=== PATIENT | female | born 1975 | race Caucasian/White ===

== ENCOUNTER 2020-12-11 19:59 | Emergency (ER) | payer SELFPAY ==
[2020-12-11 20:29] VITALS: BP 126/60; PULSE 68; RESP 18; TEMP 37.2; O2SAT 94; BMI 43.0
--- NOTE | 2020-12-11 20:54 | DI.US.S_ITS ---
PROCEDURE: US ABDOMEN LIMITED INDICATIONS: RIGHT UPPER QUADRANT PAIN TECHNIQUE: Real-time focused scanning was performed of the abdomen, with image documentation. COMPARISON: [facility], CT, ABDOMEN/PELVIS WITH CONTRAST, 10/27/2006, 16:22. FINDINGS: The liver demonstrates normal size. The liver demonstrates generalized mildly increased echogenicity. This decreases ultrasound sensitivity for detection of hepatic masses. A likely gallbladder wall polyp can be seen that measures 6-7 mm. No findings of gallstones or sludge are seen. The gallbladder wall is not thickened, measuring 3 mm or less. No specific pericholecystic fluid is seen. The sonographic Theodore sign is negative. There is no biliary dilatation, the common bile duct measures 5 mm. No significant pancreatic abnormality is seen on these images. IMPRESSION: The gallbladder demonstrates a normal sonographic appearance. No biliary dilatation is seen. Likely gallbladder wall polyp. Mild fatty liver infiltration. Note: No significant discrepancy from the preliminary report. Dictated by: Pollo Patel M.D. on 12/12/2020 at 7:58 Approved by: Pollo Patel M.D. on 12/12/2020 at 7:59
[2020-12-11 21:16] LABS: Add Manual Diff / Slide Review NO; Basophils Absolute Auto 100 /uL (0-100); Basophils Percent Auto 0.3 % (0-2); Eosinophils Absolute Auto 0 /uL (0-450); Eosinophils Percent Auto 0.1 % (2-4); Hematocrit 36.8 % (36-46); Hemoglobin 12.2 g/dL (12.0-16.0); Lymphocytes Absolute Auto 1500 /uL (1100-4500); Lymphocytes Percent Auto 7.4 % (25-40); Mean Corpuscular HGB Conc 33.1 % (30-36); Mean Corpuscular Volume 81.6 fL (80-100); Monocytes Absolute Auto 1000 /uL (0-900); Monocytes Percent Auto 5.1 % (3-14); Neutrophils Absolute Auto 17500 /uL (1500-7000); Neutrophils Percent Auto 87.1 % (50-75); Platelet Count 270 X10^3/uL (150-400); Red Blood Cell Count 4.51 X10^6/uL (4.0-5.2); Red Cell Distribution Width 14.1 % (11.6-14.8); White Blood Cell Count 20.1 X10^3/uL (4.5-11.0)
--- NOTE | 2020-12-11 21:21 | ED_ITS ---
HPI - Abdominal Pain General Chief Complaint: Abdominal Pain Stated Complaint: stomach pain,ct scan done, us needed Time Seen by Provider: 12/11/20 20:53 Source: patient Mode of arrival: Ambulatory Limitations: no limitations History of Present Illness HPI narrative: Patient is a 45-year-old female with no reported past medical history [place] at [facility] Emergency Department there she had blood work and a CT scan. She has had ongoing abdominal pain that started today. It was initially reported in her upper abdomen and radiated to bilateral upper quadrants. She now reports that it is periumbilical and goes down to her pelvic region. It comes and goes. sHe had dry heaving but no vomiting. She had leukocytosis of 16 with left shift. Troponin was negative, COVID was negative, bilirubin and LFTs and lipase were normal. CT did not show any abnormal finding. Patient has not had any reported diarrhea. She denies any chest pain or shortness of breath. Here today for ultrasound of right upper quadrant. Not COVID vaccinated. Related Data Home Medications Medication Instructions Recorded Confirmed Amoxicillin/Clav (Augmentin 875 mg PO BID #0 10/27/06 875-125 Tablet) [BUTALBITAL/APAP/CAFF] #0 10/27/06 Previous Rx's Medication Instructions Recorded ondansetron 4 mg disintegrating 4 mg PO Q8H PRN #10 tab 12/11/20 tablet Allergies Allergy/AdvReac Type Severity Reaction Status Date / Time No Known Drug Allergies Allergy Verified 12/11/20 20:29 Review of Systems Review of Systems Narrative: GENERAL: Denies chills, fatigue, malaise, fever, sweats, travel HEENT: Denies sinus pain, ear pain, sore throat, difficulty swallowing, neck pain RESPIRATORY: Denies dyspnea, cough, wheezing, hemoptysis, sputum. CARDIOVASCULAR: Denies chest pain, palpitations, orthopnea, edema GASTROINTESTINAL: See HPI : Denies dysuria, frequency, incontinence, hematuria, urinary retention, flank pain. MUSCULOSKELETAL: Denies weakness, joint pain, or bony pain SKIN: No rash, no erythema, no pruritus NEUROLOGIC: Denies weakness, dizziness, headache, numbness, change in speech, confusion PSYCHIATRIC: No concerning psychosocial issues. 12 point review of systems is negative except for those stated above and HPI Patient History Social History Smoking Status: Never smoker Smoking Status: Never smoker Substance Use Type: does not use Exam Initial Vital Signs Initial Vital Signs: Vital Signs Temperature 98.9 F 12/11/20 20:29 Pulse Rate 68 12/11/20 20:29 Respiratory Rate 18 12/11/20 20:29 Blood Pressure 126/60 12/11/20 20:29 Pulse Oximetry 94 12/11/20 20:29 GENERAL: Alert 45-year-old female appears to not feel HEENT: Head atraumatic,EOMI, pupils reactive, face symmetric, moist mucous membranes CARDIOVASCULAR: Regular rate and rhythm without murmurs, rubs or gallops. RESPIRATORY: Breath sounds equal bilaterally, no wheezes rales or rhonchi. ABDOMEN: Soft, tender periumbilical region negative Theodore sign no right upper quadrant pain EXTREMITIES: Normal range of motion, no clubbing or edema. Neurovascularly intact NEUROLOGICAL: Alert and oriented x4.Normal gait and speech. SKIN: Warm, dry, no laceration, no petechiae, no rashes or lesions. Course Orders Ordered: ED Orders 12/11/20 20:54 US abdomen limited Stat 12/11/20 21:06 Complete Blood Count AUTO DIFF Stat Comprehensive Metabolic Panel Stat Lipase Stat Discontinued Medications Sodium Chloride (Normal Saline 0.9%) 1,000 mls @ 1,000 mls/hr IV BOLUS ONE Stop: 12/11/20 22:30 Last Admin: 12/11/20 21:38 Dose: 1,000 mls/hr Documented by: CHAGO Ketorolac Tromethamine (Ketorolac 30 Mg/Ml Vial) 15 mg IV NOW ONE Stop: 12/11/20 21:32 Last Admin: 12/11/20 21:38 Dose: 15 mg Documented by: CHAGO Vital Signs Vital signs: Vital Signs - 8 hr 12/11/20 20:29 Temperature 98.9 F Pulse Rate 68 Respiratory Rate 18 Blood Pressure 126/60 Pulse Oximetry 94 MDM - Abdominal Pain Lab Data Result diagrams: 12/11/20 21:06 12/11/20 21:06 Labs: Lab Results 12/11/20 12/11/20 Range/Units 21:06 21:06 WBC 20.1 H (4.5-11.0) X10^3/uL RBC 4.51 (4.0-5.2) X10^6/uL Hgb 12.2 (12.0-16.0) g/dL Hct 36.8 (36-46) % MCV 81.6 (80-100) fL MCH 27.0 (26-34) PG MCHC 33.1 (30-36) % RDW 14.1 (11.6-14.8) % Plt Count 270 (150-400) X10^3/uL Neut % (Auto) 87.1 H (50-75) % Lymph % (Auto) 7.4 L (25-40) % [place] % (Auto) 5.1 (3-14) % Eos % (Auto) 0.1 L (2-4) % Baso % (Auto) 0.3 (0-2) % Neut # (Auto) 29453 H (1601-5339) /uL Lymph # (Auto) 1500 (0472-3332) /uL [place] # (Auto) 1000 H (0-900) /uL Eos # (Auto) 0 (0-450) /uL Baso # (Auto) 100 (0-100) /uL Sodium 133 L (137-145) mmol/L Potassium 3.9 (3.4-5.1) mmol/L Chloride 103 (98-107) mmol/L Carbon Dioxide 22 (22-32) mmol/L BUN 12 (7-17) mg/dL Creatinine 0.58 (0.52-1.04) mg/dL Estimated GFR > 60.0 (>60) mL/min BUN/Creatinine Ratio 20.7 (6-22) Glucose 135 H (70-100) mg/dL Calcium 8.9 (8.4-10.2) mg/dL Total Bilirubin 0.6 (0.2-1.3) mg/dL AST 18 (14-36) IU/L ALT 15 (<35) IU/L Alkaline Phosphatase 74 (38-126) U/L Total Protein 6.9 (6.3-8.2) g/dL Albumin 3.8 (3.5-5.0) g/dL Globulin 3.1 (1.7-4.1) g/dL Albumin/Globulin Ratio 1.2 (1.0-2.8) Lipase 34 (23-300) U/L Point of care testing: Point of Care Testing Test Results Negative Urine Dip Bedside Urine Glucose Negative Bedside Urine Bilirubin - Negative Bedside Urine Ketone +/- 5 Urine Specific Hooper 1.030 Bedside Urine Occult Blood - Negative Bedside Urine pH 5.5 Bedside Urine Protein - Negative Bedside Urine Urobilinogen - Negative Bedside Urine Nitrite - Negative Bedside Urine Leukocytes - Negative Esterase Imaging Data US - abdomen: Radiologist's Impression: Preliminary report 7 mm apparently non mobile slightly hyperechoic lesion with out posterior acoustic shadowing in the region gallbladder neck may represent polyps. MDM Narrative Medical decision making narrative: Outpatient records have been received and reviewed. She did have a CT which final impression reports no acute intra- abdominal or pelvic abnormalities. Appendix is normal. She had repeat blood work here which again showed leukocytosis this time of 20 she did receive IV Zosyn at other facility. Bilirubin LFTs and other blood work is overall reassuring. Urine does not show any sign of infection she is not having any respiratory issues. Possible gastroenteritis. I did discuss with her that she may need a repeat COVID test next week if she continues to feel bad. Patient was unhappy with this remark stating that she did not have COVID and she did not want to talk about it any longer. She was given Toradol and IV fluids for pain control. She said that it did not help and that she was ready to go home. She is given a prescription for Zofran for nausea. She was previously given a prepack at the prior emergency department for Percocet. Discharge Plan Departure Patient Disposition: Home Clinical Impression: Gastroenteritis Instructions: DI for Viral Gastroenteritis -- Adult Activity Restrictions/Additional Instructions: *You have been diagnosed with gastroenteritis *What to do: At this time her blood work does show you probably have an infection however no antibiotics are indicated at this time. I do recommend that you have a repeat COVID test if he continue to feel poorly in the next 5 days. *Continue to take medications as directed Zofran 4 mg every 8 hours if needed for nausea or vomiting *Follow up with your primary care provider in 2-3 days *Return to ER if you should have increasing pain, fever, cough, inability to keep fluids down or any new, worsening or concerning symptoms Prescriptions: New ondansetron 4 mg tablet,disintegrating 4 mg PO Q8H PRN (Reason: nausea and vomiting) Qty: 10 RF: 0 No Action Amoxicillin/Clav (Augmentin 875-125 Tablet) 875 mg PO BID Qty: 0 RF: 0 [BUTALBITAL/APAP/CAFF] Qty: 0 RF: 0
[2020-12-11 21:26] LABS: Alanine Aminotransferase 15 IU/L (<35); Albumin 3.8 g/dL (3.5-5.0); Albumin Globulin Ratio 1.2 (1.0-2.8); Alkaline Phosphatase 74 U/L (38-126); Aspartate Aminotransferase 18 IU/L (14-36); BUN Creatinine Ratio 20.7 (6-22); Bilirubin Total 0.6 mg/dL (0.2-1.3); Blood Urea Nitrogen 12 mg/dL (7-17); Calcium 8.9 mg/dL (8.4-10.2); Carbon Dioxide 22 mmol/L (22-32); Chloride 103 mmol/L (98-107); Estimated Glomerular Filt Rate > 60.0 mL/min (>60); Globulin 3.1 g/dL (1.7-4.1); Glucose 135 mg/dL (70-100); HEMOLYSIS < 15 (0-50); Lipase 34 U/L (23-300); Potassium 3.9 mmol/L (3.4-5.1); Sodium 133 mmol/L (137-145); Total Protein 6.9 g/dL (6.3-8.2)
[2020-12-11 21:27] VITALS: BMI 43.0
[2020-12-11] MEDS: KETOROLAC 30 MG/ML VIAL 15 MG IV (21:38)
[2020-12-11] MEDS: SODIUM CHLORIDE 0.9% 1,000 ML 1000 ML IV (21:38)
--- NOTE | 2020-12-11 23:10 | PC.NURSE ---
Patient extremely aggravated over discussions involving Covid and vaccinations. She states she will not get the vaccine for personal reasons and states her symptoms aren't covid related. Demanded to be discharged and leave; Cursed at the Provider on the way out. Refused vitals
== END 2020-12-11 23:11 | disposition home or self-care (01) ==
PROVIDERS: Emergency Provider Emergency Medicine
DX: K52.9 Noninfective gastroenteritis and colitis, unspecified (principal)
CPT/HCPCS: 36415; 76705; 80053; 81003; 81025; 83690; 85025; 96361; 96374; 99284; J1885

== ENCOUNTER → 2023-12-12 12:51 | Outpatient (CLI) | payer OTHER, SELFPAY ==
--- NOTE | 2023-12-12 12:59 | DI.RAD.S_ITS ---
PROCEDURE: XR SHOULDER LT MIN 2V INDICATIONS: Pain in left shoulder TECHNIQUE: 3 views of the shoulder were acquired. COMPARISON: None. FINDINGS: Bones: No fractures or dislocations. Mild DJD of the AC joint. Visualized ribs appear intact. Soft tissues: No suspicious soft tissue calcifications. Capsular calcification of the humeral head IMPRESSION: No acute bony abnormality. Mild DJD of the AC joint Capsular calcification of the humeral head can be seen with chronic rotator cuff pathology. If indicated MRI may further evaluate. Dictated by: Theodore Shepherd M.D. on 12/12/2023 at 16:13 Approved by: Theodore Shepherd M.D. on 12/12/2023 at 16:15
== END ==
PROVIDERS: Referring Provider Physician Assistant; Visit Provider Physician Assistant
DX: M19.012 Primary osteoarthritis, left shoulder (principal); M25.512 Pain in left shoulder
CPT/HCPCS: 73030